=== PATIENT | male | born 1930 | race Caucasian/White ===

== ENCOUNTER 2021-04-14 20:33 | Inpatient (IN) | payer OTHER, MEDICAID, SELFPAY ==
[~2021-04-14] VITALS: Ht 175.3 cm; Wt 55.8 kg
[2021-04-14 20:36] VITALS: BP_SYST 147
--- NOTE | 2021-04-14 20:36 | NUR ---
Patient to ER bed 2 to gown for evaluation. Side rails up.
--- NOTE | 2021-04-14 20:45 | NUR ---
Respiratory therapist at bedside.
--- NOTE | 2021-04-14 20:46 | NUR ---
Dr. Brewster at bedside for evaluation.
[2021-04-14] MEDS ORDERED: METO50TA7 PO (20:52)
[2021-04-14] MEDS ORDERED: MINERAL OIL GT (20:52)
[2021-04-14] MEDS ORDERED: FOLI-43 GT (20:52)
[2021-04-14] MEDS ORDERED: OMEP40CA13 GT (20:52)
[2021-04-14] MEDS ORDERED: METO-290 GT (20:52)
[2021-04-14] MEDS ORDERED: POLY17PO4 GT (20:52)
[2021-04-14] MEDS ORDERED: ASCO500T20 GT (20:52)
[2021-04-14] MEDS ORDERED: SENN8.6T19 GT (20:52)
[2021-04-14] MEDS ORDERED: LACT10SO7 GT (20:52)
[2021-04-14] MEDS ORDERED: CHLO473M5 PO (20:52)
[2021-04-14] MEDS ORDERED: VITA1CAP GT (20:52)
[2021-04-14] MEDS ORDERED: CLON0.1T GT (20:52)
[2021-04-14] MEDS ORDERED: TYLL650 GT (20:52)
[2021-04-14] MEDS ORDERED: DOCU-144 GT (20:52)
--- NOTE | 2021-04-14 20:52 | NUR ---
Medication reconciliation completed with information provided by [facility] and rehab. Any prior medication reconciliation on file was reviewed and corrected.
[2021-04-14] MEDS ORDERED: PANTOPRAZOLE SODIUM 80 MG in NS 100 ML IVP ONE (21:00)
--- NOTE | 2021-04-14 21:00 | NUR ---
Patient AAOx1 BIB BLS from [facility] for abnormal labs. per facility labs done on 6.4. history of ESRD on HD, afib. GERD, anemia, and resp failure. Patient on chronic trach vent settings on SIMV 12/VT 450/PS12/Peep 5/ Fi02 50%. non-verbal. dialysis AV fistula to left arm. pitting edema +3 to upper extremities and +2 on lower extremities. VSS.
--- NOTE | 2021-04-14 21:06 | NUR ---
# 18 gauge angiocath placed to RAC. Use of asceptic technique. Opsite placed over site. Blood return noted. Flushed with 10 cc of normal saline. No evidence of infiltration noted. Patient tolerated well. WEB SITE DEVELOPER AT BEDSIDE FOR BLOOD SPECIMEN COLLECTION.
--- NOTE | 2021-04-14 21:13 | NUR ---
COVID SWAB AND MRSA SWAB COLLECTED AND SENT TO LAB FOR ANALYSIS.
[2021-04-14 21:22] LABS: MEAN CORPUSCULAR HEMOGLOBIN 32 pg (27-31); MEAN CORPUSCULAR HGB CONC 34 % (32-36); MEAN CORPUSCULAR VOLUME 93 fL (79.0-98.0); PLATELET COUNT (AUTO) 374 K/uL (130-430); RED BLOOD CELL COUNT(AUTO) 2.19 MIL/uL (4.2-6.2); RED CELL DISTRIBUTION WIDTH 19.2 % (9.0-15.0); WHITE BLOOD COUNT (AUTO) 8.4 K/uL (4.8-10.8)
[2021-04-14 21:29] LABS: ANION GAP 13 (5-15); CALCIUM 8.6 mg/dL (8.4-11.0); CHLORIDE 98 mmol/L (98-107); GLUCOSE 122 mg/dL (70-99); POTASSIUM 3.6 mmol/L (3.5-5.1); SODIUM SERUM 135 mmol/L (136-145); UREA NITROGEN, BLOOD 70 mg/dL (8-21)
[2021-04-14 21:32] LABS: INR 1.1 (0.80-1.20); PROTHROMBIN TIME 11.5 SECS (9.5-12.5)
[2021-04-14 21:34] LABS: HEMATOCRIT 20.4 % (36-54)
[2021-04-14 21:35] LABS: ALANINE AMINOTRANSFERASE 77 U/L (12-78); ALBUMIN 1.4 g/dL (3.4-4.8); ASPARTATE AMINOTRANSFERASE 61 U/L (10-37); TOTAL BILIRUBIN 0.4 mg/dL (0.0-1.0)
[2021-04-14] MEDS ORDERED: PANTOPRAZOLE SODIUM 40 MG/VIAL (PROTONIX) ONE ×2 (21:38)
--- NOTE | 2021-04-14 22:00 | NUR ---
# 20 gauge angiocath placed to RAC. Use of asceptic technique. Opsite placed over site. Blood return noted. Flushed with 10 cc of normal saline. No evidence of infiltration noted. Patient tolerated well. previous PIV showed swelling when flushing. PIV removed and re-started.
[2021-04-14] MEDS: PANTOPRAZOLE SODIUM 40 MG in NS 50 ML IV SCH (22:37)
--- NOTE | 2021-04-14 23:02 | NUR ---
Patient will be admitted to [facility]. Admitted to ICU unit. Will go to room 7. Belongings list completed. Complete and up to date summary report printed. SBAR report to be given at bedside with opportunity for questions.
[2021-04-14] MEDS ORDERED: LevALBUTEROL HCL 1.25 MG/0.5 ML *CONC.* VIAL.NEB (XOPENEX CONC.) INH PRN (23:15)
[2021-04-14] MEDS ORDERED: cloNIDine HCL 0.1 MG TABLET GT PRN (23:15)
[2021-04-14] MEDS ORDERED: PANTOPRAZOLE SODIUM 40 MG/VIAL (PROTONIX) IVP SCH (23:15)
[2021-04-14] MEDS ORDERED: METOCLOPRAMIDE HCL 10 MG TABLET GT PRN (23:15)
[2021-04-14] MEDS ORDERED: ACETAMINOPHEN 650 MG/20.3 ML UDC GT PRN (23:15)
--- NOTE | 2021-04-14 23:54 | NUR ---
Transfer to ICU via ACLS protocol. Licensed nurse present. IV present no signs or symptoms of infiltration.
[2021-04-15] VITALS (38 sets, daily range): BP systolic 87–152
--- NOTE | 2021-04-15 | NUR ---
ADMISSION Pt received from ER via [facility], accompanied by Respiratory and ER staff. Ambu-bag in use. No belongings with pt. Pt alert non-verbal makes eye contact. Trach to vent. PEG tube clamped. IV fluid infusing right AC, started by ER staff 20ga. AV shunt present left forearm. Strong Bruit & thrill noted. SCD in use.
--- NOTE | 2021-04-15 01:00 | NUR ---
RHONCHI Rhonchi present bilateral upper lobes clears with suctioning.
[2021-04-15] MEDS: LevALBUTEROL HCL 1.25 MG/0.5 ML *CONC.* VIAL.NEB (XOPENEX CONC.) INH SCH ×4 (01:12→20:57)
[2021-04-15] MEDS ORDERED: PANTOPRAZOLE SODIUM 40 MG/VIAL (PROTONIX) ONE ×2 (01:27→04:43)
[2021-04-15] MEDS: D5/0.45 NS 1,000 ML IV SCH ×2 (02:48→12:33)
[2021-04-15] MEDS: PANTOPRAZOLE SODIUM 40 MG in NS 50 ML IV SCH ×6 (02:49→23:21)
--- NOTE | 2021-04-15 03:30 | NUR ---
IV PLACEMENT: # 20 gauge angiocath placed to right upper arm. Use of asceptic technique. Opsite placed over site. Blood return noted. Flushed with 10 cc of normal saline. No evidence of infiltration noted. Patient tolerated well.
--- NOTE | 2021-04-15 06:09 | NUR ---
CONSULTATION PAGED: DR. PATE PRIORITY: ROUTINE REASON FOR CONSULTATION: LOWER GI BLEED WAS CONSULT CALLED:Y PERSON WHO WAS NOTIFIED: SONAL CONSULTING PHYSICIAN: DR. RIO PINEDA IRRIGATIONIST DESIGNER TABLE GAMES FLOOR SUPERVISOR SPECIALTY: GI TABLE GAMES FLOOR SUPERVISOR PHONE NUMBER: [phone] REQUESTING PHYSICIAN: DR. MELGAR
--- NOTE | 2021-04-15 06:12 | NUR ---
CONSULTATION PAGED: DR. NGUYEN PRIORITY: ROUTINE REASON FOR CONSULTATION: RENAL FAILURE WAS CONSULT CALLED:Y PERSON WHO WAS NOTIFIED: SONAL CONSULTING PHYSICIAN: DR. NGUYEN BRANCH COORDINATOR SPECIALTY: NEPHRO BRANCH COORDINATOR PHONE NUMBER: [phone] REQUESTING PHYSICIAN: DR. MELGAR
--- NOTE | 2021-04-15 06:23 | NUR ---
PRBC Unable to get a reliable IV site. Will have MD order a central line. Pt a very difficult stick.
[2021-04-15 06:35] LABS: ANION GAP 12 (5-15); CALCIUM 8.3 mg/dL (8.4-11.0); CHLORIDE 99 mmol/L (98-107); CREATININE 3.13 mg/dL (0.55-1.30); GLUCOSE 102 mg/dL (70-99); POTASSIUM 3.6 mmol/L (3.5-5.1); SODIUM SERUM 134 mmol/L (136-145); UREA NITROGEN, BLOOD 73 mg/dL (8-21)
[2021-04-15 06:53] LABS: BASOPHILS % (AUTO) 0.3 % (0.0-2.0); EOSINOPHILS # (AUTO) 0.1 K/uL (0.0-0.4); LYMPHOCYTES # (AUTO) 1.6 K/uL (1.0-5.5); LYMPHOCYTES % (AUTO) 18.6 % (20.5-51.5); MEAN CORPUSCULAR HEMOGLOBIN 32 pg (27-31); MEAN CORPUSCULAR HGB CONC 34 % (32-36); MEAN CORPUSCULAR VOLUME 92 fL (79.0-98.0); MONOCYTES # (AUTO) 1.2 K/uL (0.0-1.0); MONOCYTES % (AUTO) 13.3 % (1.7-9.3); NEUTROPHILS # (AUTO) 5.9 K/uL (1.8-7.7); NEUTROPHILS % (AUTO) 66.8 % (40.0-70.0); PLATELET COUNT (AUTO) 361 K/uL (130-430); RED BLOOD CELL COUNT(AUTO) 2.09 MIL/uL (4.2-6.2); RED CELL DISTRIBUTION WIDTH 18.4 % (9.0-15.0); WHITE BLOOD COUNT (AUTO) 8.9 K/uL (4.8-10.8)
[2021-04-15 06:59] LABS: TOTAL IRON BIND. CAPACITY 137 ug/dL (250-450)
--- NOTE | 2021-04-15 07:22 | NUR ---
Received patient and report from busperson nurse. Patient in bed with side rails x 3 up. Call light with in reach.
--- NOTE | 2021-04-15 07:45 | NUR ---
MD Castro at bedside assessing patient, gave update as requested.
--- NOTE | 2021-04-15 07:50 | NUR ---
MD Agusto houston for consultation, stated will come to site soon to assess patient.
[2021-04-15 07:51] LABS: HEMATOCRIT 19.2 % (36-54); HEMOGLOBIN 6.6 g/dL (14.0-18.0)
--- NOTE | 2021-04-15 08:30 | NUR ---
Reported to primary patient's hemoglobin 6.6, hematocrit 19.2 from this morning's labs and requested PICC line order due to inability for two units of blood already ordered to be given due to multiple nurses attempt for IV line insertion as reported by night filler. Primary approved, paged splunk developer to receive consent for PICC line order.
[2021-04-15] MEDS: FOLIC ACID 1 MG TABLET GT SCH (09:00)
[2021-04-15] MEDS: ASCORBIC ACID 500 MG TABLET GT SCH (09:00)
[2021-04-15] MEDS: POLYETHYLENE GLYCOL 3350, 17 GM/ POWD.PACK GT SCH ×2 (09:00→20:18)
[2021-04-15] MEDS: LACTULOSE 20 GM/30 ML UDC GT SCH (09:00)
[2021-04-15] MEDS: VITAMIN B COMPLEX 1 CAP/TAB GT SCH (09:00)
[2021-04-15] MEDS: METOPROLOL SUCCINATE 50 MG TAB.SR.24H (TOPROL XL) PO SCH (09:00)
[2021-04-15] MEDS: MINERAL OIL 30 ML UDC GT SCH (09:00)
--- NOTE | 2021-04-15 09:02 | NUR ---
BT INITIATION: Consent signed per family member Clarisa via telephone agreeing to administration of blood. Blood has been type and crossmatched. First unit of two blood units sent from blood bank. Information on unit of blood checked against patient wristband at bedside by two nurses. All information matches. Patient or responsible libertarian informed of potential complications associated with blood transfusion. Informed of possible transfusion reaction symptoms. Aware of need to notify nurse at once of itching, shortness of breath, flushing, feeling of impending doom, or other symptoms not previously present. Vital signs taken within 5 minutes prior to initiation of transfusion. RN will remain with patient for first 15 minutes of transfusion at which time vital signs will be re-assessed.
[2021-04-15] MEDS: CHLORHEXIDINE GLUCONATE 15 ML/DOSE, 480 ML MM SCH ×2 (09:11→20:19)
--- NOTE | 2021-04-15 10:03 | NUR ---
MD Liz at bedside assessing patient.
--- NOTE | 2021-04-15 10:04 | NUR ---
Gave MD Liz patient update as requested at bedside.
--- NOTE | 2021-04-15 10:14 | NUR ---
Reported to MD Pascal patient has stage four sacral wound with large amount of purulent drainage and was reported by general utility worker nurse patient had mild temperature, MD Liz ordered IV Merrem. MD Pascal new order Ayaan for infectious disease consultation. MD Kuo paged.
--- NOTE | 2021-04-15 10:17 | NUR ---
CONSULT ID CONSULTING MD: DR. HARVEY PERSON NOTIFIED: RODRIGUEZ DIALED: [phone] ORDERED BY: DR. MELGAR
[2021-04-15] MEDS ORDERED: MIDAZOLAM HCL 5 MG/5 ML VIAL ONE (10:31)
[2021-04-15] MEDS ORDERED: MEROPENEM IV SCH (11:00)
[2021-04-15] MEDS ORDERED: NS IV SCH (11:00)
[2021-04-15] MEDS ORDERED: ROCURONIUM BROMIDE 10 MG/ML (ZEMURON) IV ONE (11:44)
--- NOTE | 2021-04-15 11:50 | NUR ---
MD Kuo called, gave update as requested.
--- NOTE | 2021-04-15 11:54 | NUR ---
Nutrition Update Humberto scale: 11 noted Pt admitted with lower GI bleed Diet: Clear liquid BMI: 18.8 kg/m2 RD to follow per nutrition care standards. KW, RD
[2021-04-15] MEDS: VANCOMYCIN HCL 750 MG in NS 250 ML IV SCH (12:32)
--- NOTE | 2021-04-15 12:47 | NUR ---
Verified protonix order with MD Castro, ordered to keep protonix drip and discontinue protonix IVP. Also reported patient hemoglobin was 6.6 and hematocrit is 19.2 but with bleeding visualized during patient care, MD requested to repeat CBC after completion of blood transfusions and patient may start GT feeding Nephro 30 cc/hr after KUB verification of gt placement is performed.
[2021-04-15] MEDS ORDERED: GASTROGRAFIN 120 ML ONE (13:06)
--- NOTE | 2021-04-15 14:58 | NUR ---
MD Pascal approved new order for venelex and calclium alginate for sacral wound and heel boots for patient.
[2021-04-15] MEDS: CEFEPIME 1 GM in D5W 50 ML IV SCH (15:00)
[2021-04-15] MEDS: metroNIDAZOLE 250 mg/NS 50 ML IV SCH ×2 (15:01→22:16)
[2021-04-15 15:43] LABS: BASOPHILS % (AUTO) 0.4 % (0.0-2.0); EOSINOPHILS # (AUTO) 0.1 K/uL (0.0-0.4); EOSINOPHILS % (AUTO) 1.7 % (0.0-4.0); HEMATOCRIT 25.7 % (36-54); HEMOGLOBIN 8.8 g/dL (14.0-18.0); LYMPHOCYTES # (AUTO) 1.6 K/uL (1.0-5.5); LYMPHOCYTES % (AUTO) 22.5 % (20.5-51.5); MEAN CORPUSCULAR HEMOGLOBIN 31 pg (27-31); MEAN CORPUSCULAR HGB CONC 34 % (32-36); MEAN CORPUSCULAR VOLUME 91 fL (79.0-98.0); MONOCYTES # (AUTO) 0.8 K/uL (0.0-1.0); MONOCYTES % (AUTO) 11.3 % (1.7-9.3); NEUTROPHILS # (AUTO) 4.6 K/uL (1.8-7.7); NEUTROPHILS % (AUTO) 64.1 % (40.0-70.0); PLATELET COUNT (AUTO) 297 K/uL (130-430); RED BLOOD CELL COUNT(AUTO) 2.84 MIL/uL (4.2-6.2); RED CELL DISTRIBUTION WIDTH 17.9 % (9.0-15.0); WHITE BLOOD COUNT (AUTO) 7.2 K/uL (4.8-10.8)
--- NOTE | 2021-04-15 16:05 | NUR ---
MD Castillo present at bedside assessing patient, update on patient's status per request.
[2021-04-15] MEDS ORDERED: BALSAM PERU/CASTOR OIL 60 GM OINT...G. TP ONE (16:30)
--- NOTE | 2021-04-15 17:36 | NUR ---
WOUND ASSESSMENT: 1. SACRAL- [place] shaped woundbed present with 80% white slough based 20% beefy red with macerated periwound. In middle of woundbed circular hollow shaped 3.2 CM length x 3.0 cm width with depth and undermining present (3.0 cm from 1 O'Clock to 4 O'Clock and at 11 O'Clock, 2.2 cm at 5 and 9 O'Clock, 2 cm at 6 O'clock, 2.6 cm at 7 O'Clock, 2.8 cm at 8 cm O'Clock, 2.4 cm at 10 cm O'Clock, 1.2 cm O'Clock). Foul odor with excessive amount of greenish purulent thick drainage. Entire woundbed 4.9 CM LENGTH X 5.8 CM WIDTH X 2.0 CM depth. present. Updated wound assessment to MD Pascal, approved order for venelex be placed on woundbed and packed with calclium alginate dressing with foam dressing on top after cleaned with normal saline and pat dry with gauze. TREATMENT: Cleaned woundbed with normal saline and pat dry surrounding site with gauze. Packed woundbed with calcium alginate and applied venelex.Covered site with foam dressing. 2. AV SHUNT LEFT ARM- Woundbed 90% [place] 10 % white with intact periwound and multiple areas of dry red linear scabs. No odor or drainage. TREATMENT: CONTINUE TO MONITOR, OPEN TO AIR.
--- NOTE | 2021-04-15 17:42 | NUR ---
Dialysis nurse at bedside starting procedure on patient, consent already obtained from niece Clarisa with second nurse validation received. Answered all of Clarisa's questions and educated benefits of receiving dialysis procedure, Clarisa agreed.
--- NOTE | 2021-04-15 19:21 | NUR ---
Endorsed patient and report to broadcast journalist nurse. Side rails x 3 up. Call light with in reach.
--- NOTE | 2021-04-15 19:30 | NUR ---
Opening Note Received report from AM nurse using SBAR approach.
--- NOTE | 2021-04-15 19:50 | NUR ---
Placed machine on the wound mattress to help facilitate wound healing.
[2021-04-15] MEDS: SENNOSIDES 8.6 MG TABLET GT SCH (20:19)
--- NOTE | 2021-04-15 22:00 | NUR ---
Dr. Herediaium in to see patient. No new orders received.
[2021-04-16] VITALS (28 sets, daily range): BP systolic 95–137
[2021-04-16] MEDS: LevALBUTEROL HCL 1.25 MG/0.5 ML *CONC.* VIAL.NEB (XOPENEX CONC.) INH SCH ×4 (01:16→22:25)
[2021-04-16] MEDS: PANTOPRAZOLE SODIUM 40 MG in NS 50 ML IV SCH ×5 (03:24→23:08)
[2021-04-16 06:08] LABS: BASOPHILS % (AUTO) 0.5 % (0.0-2.0); EOSINOPHILS # (AUTO) 0.1 K/uL (0.0-0.4); HEMATOCRIT 27.4 % (36-54); HEMOGLOBIN 9.2 g/dL (14.0-18.0); LYMPHOCYTES # (AUTO) 1.1 K/uL (1.0-5.5); LYMPHOCYTES % (AUTO) 15.8 % (20.5-51.5); MEAN CORPUSCULAR HEMOGLOBIN 30 pg (27-31); MEAN CORPUSCULAR HGB CONC 34 % (32-36); MEAN CORPUSCULAR VOLUME 90 fL (79.0-98.0); MONOCYTES # (AUTO) 0.9 K/uL (0.0-1.0); MONOCYTES % (AUTO) 13.7 % (1.7-9.3); NEUTROPHILS # (AUTO) 4.6 K/uL (1.8-7.7); PLATELET COUNT (AUTO) 300 K/uL (130-430); RED BLOOD CELL COUNT(AUTO) 3.05 MIL/uL (4.2-6.2); RED CELL DISTRIBUTION WIDTH 18.1 % (9.0-15.0); WHITE BLOOD COUNT (AUTO) 6.8 K/uL (4.8-10.8)
[2021-04-16 07:14] LABS: ALANINE AMINOTRANSFERASE 65 U/L (12-78); ALBUMIN 1.4 g/dL (3.4-4.8); ANION GAP 12 (5-15); ASPARTATE AMINOTRANSFERASE 56 U/L (10-37); CHLORIDE 101 mmol/L (98-107); CREATININE 2.54 mg/dL (0.55-1.30); GLUCOSE 101 mg/dL (70-99); POTASSIUM 3.3 mmol/L (3.5-5.1); SODIUM SERUM 139 mmol/L (136-145); TOTAL BILIRUBIN 0.6 mg/dL (0.0-1.0); UREA NITROGEN, BLOOD 45 mg/dL (8-21)
[2021-04-16] MEDS: metroNIDAZOLE 250 mg/NS 50 ML IV SCH ×3 (07:15→21:01)
--- NOTE | 2021-04-16 07:30 | NUR ---
AM NOTES: ENDORSEMENT FROM NIGHT NURSE JAVIER. ON AIR LOSS MATTRESS BED.PATIENT ON SIMV MECHANICAL VENTILATOR.SEE [facility] FOR SETTINGS.CLOSED EYES. RIGHT FEMORAL LINE ,IV FLUIDS RUNNING AT 60CC/H AND IV PROTONIX AT 10CC/H. LEFT ARM AV SHUNT,COVERED WITH GAUZE AND SECURED WITH PAPER TAPE.BED LOCKED AT LOWEST POSITION.BILATERAL SCD'S LE.SAFETY MEASURES RENDERED.CONDITION GUARDED. Addendum: 04/16/21 at 0908 by Iris Ledbetter RN ADDED NOTES: G TUBE CLAMPED. AWAITS FOR KUB RESULTS PER DORINA ROLDAN.
[2021-04-16] MEDS: D5/0.45 NS 1,000 ML IV SCH ×2 (08:00→23:08)
[2021-04-16] MEDS: CHLORHEXIDINE GLUCONATE 15 ML/DOSE, 480 ML MM SCH ×2 (08:02→21:00)
[2021-04-16 08:05] LABS: FOLATE (FOLIC ACID) >20.0 ng/mL (>3.0)
[2021-04-16] MEDS: POLYETHYLENE GLYCOL 3350, 17 GM/ POWD.PACK GT SCH ×2 (09:00→21:00)
[2021-04-16] MEDS: VITAMIN B COMPLEX 1 CAP/TAB GT SCH (09:00)
[2021-04-16] MEDS: MINERAL OIL 30 ML UDC GT SCH (09:00)
[2021-04-16] MEDS: FOLIC ACID 1 MG TABLET GT SCH (09:00)
[2021-04-16] MEDS: LACTULOSE 20 GM/30 ML UDC GT SCH (09:00)
[2021-04-16] MEDS: ASCORBIC ACID 500 MG TABLET GT SCH (09:00)
[2021-04-16] MEDS: METOPROLOL SUCCINATE 50 MG TAB.SR.24H (TOPROL XL) PO SCH (09:00)
[2021-04-16] MEDS: BALSAM PERU/CASTOR OIL 60 GM OINT...G. TP SCH (11:44)
[2021-04-16] MEDS: CEFEPIME 1 GM in D5W 50 ML IV SCH (12:44)
--- NOTE | 2021-04-16 14:33 | NUR ---
MD Herediaium at bedside to assess patient. Informed UGI came back confirming gt placement is in appropriate location. new order to transfer patient to tele unit once tube feeding is started. Orders placed MST charge notified.
--- NOTE | 2021-04-16 16:00 | NUR ---
Tube Feed: Nephro initially started at 20cc/h then increment of 10cc/h after an hour,with no residuals.Goal of 30cc/h as ordered.
--- NOTE | 2021-04-16 18:00 | NUR ---
Report: Report given to sherwin Lorenz nurse.
--- NOTE | 2021-04-16 18:28 | NUR ---
Transfer Out to [facility]: Rt ambu bag patient going to room 111- A via bed.Attached to heart monitor during transport. Transfer to air loss mattress bed.Hook to mechanical ventilator,with simv 12,see [facility] for vent settings.Tube feed clamped during transport.Right femoral to lock during transfer. Not in any distress. Condition guarded.
--- NOTE | 2021-04-16 18:45 | NUR ---
Received patient from ICU via bed. Patient obtunded and on vent setting TV 450 FIO2 40%, PEEP 5, PP12. Vitals WNL. Dressing to LFA shunt C/D/I. Saline lock right A/C #20 patent. Right femoral Protonix at 10ml/hr, and D5 1/2 at 60ml/hr. G tube placement checked and nepro at 30ml/hr no residual. Bilateral upper extremity edema noted with weeping. Safety precautions in place. Will endorse to next shift.
--- NOTE | 2021-04-16 19:35 | NUR ---
INITIAL NOTE PATIENT IS LAYING IN BED. NO S/S OF RESPIRATORY DISTRESS NOTED. CALL LIGHT IN REACH. PATIENT UNSUCCESSFULLY DEMONSTRATE USAGE OF CALL LIGHT. WILL CONTINUE TO MONITOR. BED IS LOCKED, ALARMED, AND AT THE LOWEST POSITION. FALL, SAFETY, ASPIRATION, AND RESPIRATORY PRECAUTIONS WILL BE IN PLACE THROUGHOUT THE SHIFT. PLAN OF CARE IS DISCUSSED WITH PATIENT.
[2021-04-16] MEDS: SENNOSIDES 8.6 MG TABLET GT SCH (21:00)
[2021-04-17 00:07] VITALS: BP_SYST 119
[2021-04-17] MEDS: LevALBUTEROL HCL 1.25 MG/0.5 ML *CONC.* VIAL.NEB (XOPENEX CONC.) INH SCH ×4 (01:48→20:24)
[2021-04-17] MEDS: PANTOPRAZOLE SODIUM 40 MG in NS 50 ML IV SCH ×5 (04:58→23:59)
[2021-04-17] MEDS: metroNIDAZOLE 250 mg/NS 50 ML IV SCH ×3 (05:28→22:09)
--- NOTE | 2021-04-17 06:25 | NUR ---
CLOSING NOTE PATIENT IS STABLE AND LAYING IN BED. NO S/S OF RESPIRATORY DISTRESS NOTED. CALL LIGHT IN REACH. BED IS LOCKED, AND AT THE LOWEST POSITION. FALL, SAFETY, ASPIRATION, AND RESPIRATORY PRECAUTIONS WILL BE IN PLACE THROUGHOUT THE SHIFT. WILL CONTINUE TO MONITOR UNTIL SBAR REPORT IS ENDORSED TO AM NURSE. Addendum: 04/17/21 at 0625 by Bryon Mcgarry RN BED IS LOCKED, ALARMED, AND AT THE LOWEST POSITION.
[2021-04-17 06:53] LABS: INR 1.2 (0.80-1.20); PROTHROMBIN TIME 11.8 SECS (9.5-12.5)
[2021-04-17 08:00] VITALS: BP_SYST 103
--- NOTE | 2021-04-17 08:00 | NUR ---
OPENING NOTES RESTING IN BED, UNABLE TO ANSWER ORIENTATION QUESTIONS. ON MECHANICAL VENTILATOR ON SIMV MODE VIA TRACH. NO SIGN OF DIFFICULTY OF BREATHING OR PAIN. TUBE FEEDING ON HOLD. ORAL CARE DONE. REPOSITIONED. FALL AND SAFETY CHECKS DONE. ASPIRATION PRECAUTIONS IN PLACE. PATIENT IS UNABLE TO USE CALL LIGHT. WILL CLOSELY MONITOR.
[2021-04-17] MEDS: VITAMIN B COMPLEX 1 CAP/TAB GT SCH (09:00)
[2021-04-17] MEDS: FOLIC ACID 1 MG TABLET GT SCH (09:00)
[2021-04-17] MEDS: LACTULOSE 20 GM/30 ML UDC GT SCH (09:00)
[2021-04-17] MEDS: MINERAL OIL 30 ML UDC GT SCH (09:00)
[2021-04-17] MEDS: METOPROLOL SUCCINATE 50 MG TAB.SR.24H (TOPROL XL) PO SCH (09:00)
[2021-04-17] MEDS: POLYETHYLENE GLYCOL 3350, 17 GM/ POWD.PACK GT SCH ×2 (09:00→22:07)
[2021-04-17] MEDS: ASCORBIC ACID 500 MG TABLET GT SCH (09:00)
[2021-04-17] MEDS: CHLORHEXIDINE GLUCONATE 15 ML/DOSE, 480 ML MM SCH ×2 (09:25→22:10)
[2021-04-17] MEDS: BALSAM PERU/CASTOR OIL 60 GM OINT...G. TP SCH (09:27)
[2021-04-17] MEDS: VANCOMYCIN HCL 750 MG in NS 250 ML IV SCH (11:35)
--- NOTE | 2021-04-17 11:37 | NUR ---
Dietitian Recommendations *Recommend: resume EN and increase EN infusion rate to new goal. Add Torrey BID *Recommend: Nepro at 35ml/hr, FWF per physician via GT Provides: 1672 kcal, 73gm protein and 611ml fluids daily. Meets: 103% of estimated calorie needs and 84% of lower end of estimated protein needs. Please see Nutritional Assessment for details LONGTERM, RD
[2021-04-17 12:00] VITALS: BP_SYST 118
[2021-04-17 13:16] LABS: FERRITIN 2537 ng/mL (30-400)
--- NOTE | 2021-04-17 13:43 | NUR ---
ULISES note: faxed subacute package to [facility]: [facility]. ULISES requested dr. Pascal for the dc back order. Addendum: 04/17/21 at 1355 by Mino Johnson RN Correction : Please disregard the above information. Wrong patient entry.
[2021-04-17] MEDS: CEFEPIME 1 GM in D5W 50 ML IV SCH (13:49)
[2021-04-17] MEDS ORDERED: SIMETHICONE 40 MG/0.6 ML ML ONE (15:07)
[2021-04-17] MEDS ORDERED: MEPERIDINE 100 MG INJ. 100 MG/ML VIAL ONE (15:08)
[2021-04-17] MEDS ORDERED: fentaNYL CITRATE/PF 100 MCG/2 ML AMP ONE (15:08)
[2021-04-17] MEDS ORDERED: MIDAZOLAM HCL 5 MG/5 ML VIAL ONE (15:09)
--- NOTE | 2021-04-17 15:27 | NUR ---
WOUND EVALUATION: Wound Consult received from Dr. Pascal. Thank you, Dr. Pascal, for the consult. Patient received in a [place] Bed with an IsoFlex CALVIN mattress with low air loss therapy initiated, awake, obtunded. Patient is unable to turn in bed independently. Humberto Score is a 12. Past Medical History: CVA, Hypertension, End-Stage Renal Failure, G-tube placement, Tracheostomy, Chronic Respiratory Failure. Patient transferred to the Emergency Room at [facility] with severe anemia and a positive stool occult blood result. Recent Labs: WBC 6.8, RBC 3.05, hemoglobin 9.2, hematocrit 27.4, potassium 3.3, BUN 45, creatinine 2.54, glucose 101, calcium 8.0, AST 56, alkaline phosphatase 136, serum total protein 5.9, albumin 1.4. Microbiology: MRSA screen results negative. Tracheal aspirate sputum culture results in progress. Sacral wound culture results positive for Morganella Morganii. Blood culture results x2 in progress. Intrinsic factors that delay wound healing: End-Stage Renal Failure, Chronic Respiratory Failure. Extrinsic factors that delay wound healing: Immobility. Wound Assessment: 1. SacralCoccygeal area: Stage IV pressure ulcer, present on admission. Wound bed has 90% yellow slough, 10% red tissue. Bone is palpable. Foul odor, moderate brown drainage with pink tint. Irvin-wound intact. 100% undermining present (4.2 cm at 12 o'clock; 4.8 cm at 3 o'clock; 2.0 cm at 6 o'clock; 4.5 cm at 9 o'clock). Measures 6.0 cm x 8.5 cm x 1.5 cm. Recommend: Cleanse wound with normal saline. Apply moisture barrier cream onto irvin-wound. Apply Venelex ointment to wound bed. Pack wound with 1/2 inch iodo[address] packing strip. Place calcium alginate dressing over packing strip. Cover with non-adhesive foam dressing. Cover with OpSite. Perform wound care daily, and as needed for dressing soiling or dislodgement. Also recommend: Reposition patient side to side only every 2 hours with pillow support and off-load pressure areas with pillows for pressure re-distribution. Offload, elevate and float bilateral heels with pillows. Perform skin care and monitor skin integrity Q shift. Use moisture barrier cream on buttocks and other moisture susceptible areas QID and as needed for soiling. Place patient on a low air-loss mattress. Recommend surgical consult.
[2021-04-17 15:36] VITALS: BP_SYST 130
--- NOTE | 2021-04-17 16:20 | NUR ---
EGD EGD being done at bedside by Dr. Duke.
--- NOTE | 2021-04-17 16:33 | NUR ---
rt notes 1633 EGD Procedure done by Dr. Duke. Pt on SIMV 12, 450VT, PS12, PEEP 5, 40% FIO2. Pt tolerated procedure. no desaturation. no incident happened. will continue to monitor pt.
[2021-04-17] MEDS: D5/0.45 NS 1,000 ML IV SCH (18:48)
--- NOTE | 2021-04-17 19:10 | NUR ---
OPENING NOTES PATIENT RESTING, HOB ELEVATED, NO RESPIRATORY DISTRESS NOTED, CONNECTED TO TRACH BY VENT. CALL LIGHT WITHIN REACH, PATIENT UNABLE TO USE CALL LIGHT, WILL CONTINUE TO MONITOR CLOSELY. BED ALARM ON, BED AT LOWEST POSITION, BED LOCKED, SEIZURE PADS ON. GTUBE IN PLACE, 0ML RESIDUAL NOTED. SEIZURE, ASPIRATION, RESPIRATORY, SAFETY, AND FALL PRECAUTIONS IN PLACE. RECEIVED REPORT THAT PATIENT HAD HAD DIALYSIS 2.4 L OUT, WOUND CARE PROVIDED BY AM SHIFT. DISCUSSED PLAN OF CARE WITH PATIENT. WILL CONTINUE TO MONITOR.
[2021-04-17] MEDS: SENNOSIDES 8.6 MG TABLET GT SCH (22:08)
[2021-04-18] VITALS: BP_SYST 108
--- NOTE | 2021-04-18 00:06 | NUR ---
INCONTINENCE CARE PROVIDED, NO SIGNS OF DISTRESS NOTED. WILL CONTINUE TO MONITOR.
[2021-04-18] MEDS: LevALBUTEROL HCL 1.25 MG/0.5 ML *CONC.* VIAL.NEB (XOPENEX CONC.) INH SCH ×3 (01:53→19:16)
[2021-04-18] MEDS: PANTOPRAZOLE SODIUM 40 MG in NS 50 ML IV SCH ×4 (05:54→21:56)
[2021-04-18] MEDS: metroNIDAZOLE 250 mg/NS 50 ML IV SCH (05:54)
--- NOTE | 2021-04-18 06:43 | NUR ---
CLOSING NOTES PATIENT RESTING, HOB ELEVATED, NO RESPIRATORY DISTRESS NOTED, CONNECTED TO TRACH BY VENT. CALL LIGHT WITHIN REACH, PATIENT UNABLE TO USE CALL LIGHT. BED ALARM ON, BED AT LOWEST POSITION, BED LOCKED, SEIZURE PADS ON. GTUBE IN PLACE, 5ML RESIDUAL NOTED. SEIZURE, ASPIRATION, RESPIRATORY, SAFETY, AND FALL PRECAUTIONS IN PLACE THROUGHOUT SHIFT. WILL ENDORSE CARE TO ONCOMING SHIFT.
--- NOTE | 2021-04-18 08:00 | NUR ---
OPENING NOTES RESTING IN BED, UNABLE TO ANSWER ORIENTATION QUESTIONS. ON MECHANICAL VENTILATOR ON SIMV MODE VIA TRACH. NO SIGN OF DIFFICULTY OF BREATHING OR PAIN. TUBE FEEDING AND IV FLUIDS INFUSING WELL. ORAL CARE DONE. REPOSITIONED. FALL AND SAFETY CHECKS DONE. ASPIRATION PRECAUTIONS IN PLACE. PATIENT IS UNABLE TO USE CALL LIGHT. WILL CLOSELY MONITOR.
[2021-04-18 08:14] VITALS: BP_SYST 102
[2021-04-18] MEDS: METOPROLOL SUCCINATE 50 MG TAB.SR.24H (TOPROL XL) PO SCH (09:00)
[2021-04-18] MEDS: MINERAL OIL 30 ML UDC GT SCH (09:00)
[2021-04-18] MEDS: LACTULOSE 20 GM/30 ML UDC GT SCH (09:00)
[2021-04-18] MEDS: POLYETHYLENE GLYCOL 3350, 17 GM/ POWD.PACK GT SCH ×2 (09:00→21:57)
[2021-04-18] MEDS: FOLIC ACID 1 MG TABLET GT SCH (10:00)
[2021-04-18] MEDS: CHLORHEXIDINE GLUCONATE 15 ML/DOSE, 480 ML MM SCH ×2 (10:00→21:57)
[2021-04-18] MEDS: BALSAM PERU/CASTOR OIL 60 GM OINT...G. TP SCH (10:00)
[2021-04-18] MEDS: ASCORBIC ACID 500 MG TABLET GT SCH (10:01)
[2021-04-18] MEDS: VITAMIN B COMPLEX 1 CAP/TAB GT SCH (10:11)
--- NOTE | 2021-04-18 10:30 | NUR ---
WOUND CARE WOUND CARE DONE. PATIENT TOLERATED PROCEDURE WELL. FALL AND SAFETY CHECKS DONE. ASPIRATION PRECAUTIONS IN PLACE. WILL MONITOR.
[2021-04-18 11:38] VITALS: BP_SYST 130
[2021-04-18] MEDS: D5/0.45 NS 1,000 ML IV SCH (11:52)
--- NOTE | 2021-04-18 12:05 | NUR ---
CM note: Faxed [facility] eval referral package to [facility] fax # [phone], tel [phone].
[2021-04-18] MEDS: CEFEPIME 1 GM in D5W 50 ML IV SCH (14:08)
[2021-04-18 15:43] VITALS: BP_SYST 157
--- NOTE | 2021-04-18 17:45 | NUR ---
CENTRAL LINE DRESSING CHANGE DONE. PATIENT TOLERATED PROCEDURE WELL.
[2021-04-18] MEDS: COLISTIMETHATE SODIUM 150 MG VIAL INH SCH (19:00)
[2021-04-18 20:00] VITALS: BP_SYST 142
--- NOTE | 2021-04-18 20:31 | NUR ---
PATIENT IN BED. TURNED REPOSITIONED Q2. GTUBE PATENT AND INTACT. NO RESIDUAL NOTED. EDEMA NOTED. WILL CONTINUE TO MONITOR. DRESSING TO THE COCCYX DRY AND INTACT.
[2021-04-18] MEDS ORDERED: PANTOPRAZOLE SODIUM 40 MG/VIAL (PROTONIX) ONE (20:47)
[2021-04-18] MEDS: SENNOSIDES 8.6 MG TABLET GT SCH (21:57)
[2021-04-19] VITALS (7 sets, daily range): BP systolic 115–160
[2021-04-19] MEDS: LevALBUTEROL HCL 1.25 MG/0.5 ML *CONC.* VIAL.NEB (XOPENEX CONC.) INH SCH ×4 (01:38→19:43)
[2021-04-19] MEDS: PANTOPRAZOLE SODIUM 40 MG in NS 50 ML IV SCH ×4 (02:00→18:08)
[2021-04-19] MEDS ORDERED: PANTOPRAZOLE SODIUM 40 MG/VIAL (PROTONIX) ONE ×2 (02:46→04:49)
[2021-04-19] MEDS: D5/0.45 NS 1,000 ML IV SCH ×2 (03:15→19:55)
[2021-04-19 07:29] LABS: BASOPHILS % (AUTO) 0.3 % (0.0-2.0); EOSINOPHILS # (AUTO) 0.4 K/uL (0.0-0.4); EOSINOPHILS % (AUTO) 4.8 % (0.0-4.0); HEMATOCRIT 27.3 % (36-54); HEMOGLOBIN 9.3 g/dL (14.0-18.0); LYMPHOCYTES % (AUTO) 11.5 % (20.5-51.5); MEAN CORPUSCULAR HEMOGLOBIN 31 pg (27-31); MEAN CORPUSCULAR HGB CONC 34 % (32-36); MEAN CORPUSCULAR VOLUME 92 fL (79.0-98.0); MONOCYTES # (AUTO) 0.7 K/uL (0.0-1.0); MONOCYTES % (AUTO) 8.5 % (1.7-9.3); NEUTROPHILS # (AUTO) 6.4 K/uL (1.8-7.7); NEUTROPHILS % (AUTO) 74.9 % (40.0-70.0); PLATELET COUNT (AUTO) 251 K/uL (130-430); RED BLOOD CELL COUNT(AUTO) 2.97 MIL/uL (4.2-6.2); RED CELL DISTRIBUTION WIDTH 17.9 % (9.0-15.0); WHITE BLOOD COUNT (AUTO) 8.5 K/uL (4.8-10.8)
--- NOTE | 2021-04-19 07:34 | NUR ---
OPENING NOTE Patient resting in the bed. No acute distress. HOB elevated. Trach intact to vent: AC 12, FIO2 40%, VT 450, PEEP 5. On Nepro at 45ml/hr. Skin warm and dry to touch. Central line intact to right femoral, no redness, no swelling, no drainage. Covered with clean and dry dressing. On D5 1/2 NS at 60ml/hr, infusing well. On contact isolation. Safety measure maintained. Bed locked in low position, side rails up, bed alarm on. Call light within reached. Will continue to monitor.
[2021-04-19 07:36] LABS: ALANINE AMINOTRANSFERASE 39 U/L (12-78); ALBUMIN 1.2 g/dL (3.4-4.8); ANION GAP 11 (5-15); ASPARTATE AMINOTRANSFERASE 46 U/L (10-37); CHLORIDE 100 mmol/L (98-107); CREATININE 3.26 mg/dL (0.55-1.30); GLUCOSE 135 mg/dL (70-99); SODIUM SERUM 136 mmol/L (136-145); TOTAL BILIRUBIN 0.4 mg/dL (0.0-1.0); UREA NITROGEN, BLOOD 42 mg/dL (8-21)
[2021-04-19] MEDS: COLISTIMETHATE SODIUM 150 MG VIAL INH SCH ×2 (07:46→19:43)
[2021-04-19 07:49] LABS: POTASSIUM 2.8 mmol/L (3.5-5.1)
--- NOTE | 2021-04-19 07:59 | NUR ---
MD LIGHT CALLED [facility] AT [phone] SPOKE WITH STEVE.
[2021-04-19] MEDS: ASCORBIC ACID 500 MG TABLET GT SCH (08:28)
[2021-04-19] MEDS: VITAMIN B COMPLEX 1 CAP/TAB GT SCH (08:28)
[2021-04-19] MEDS: MINERAL OIL 30 ML UDC GT SCH (08:28)
[2021-04-19] MEDS: LACTULOSE 20 GM/30 ML UDC GT SCH (08:28)
[2021-04-19] MEDS: FOLIC ACID 1 MG TABLET GT SCH (08:28)
[2021-04-19] MEDS: POLYETHYLENE GLYCOL 3350, 17 GM/ POWD.PACK GT SCH (08:28)
[2021-04-19] MEDS: METOPROLOL SUCCINATE 50 MG TAB.SR.24H (TOPROL XL) PO SCH (08:28)
[2021-04-19] MEDS: BALSAM PERU/CASTOR OIL 60 GM OINT...G. TP SCH (08:29)
[2021-04-19] MEDS: CHLORHEXIDINE GLUCONATE 15 ML/DOSE, 480 ML MM SCH (08:29)
--- NOTE | 2021-04-19 08:40 | NUR ---
POTASSIUM 2.8 Chidi Vasquez seem and examined patient at bedside. Reported to Dr. Camacho, patient's K 2.[address] Camacho he will order potassium supplement via GT and adjust the order of potassium to hemodialysis today.
--- NOTE | 2021-04-19 08:46 | NUR ---
DC Planning: Per Nini, the pt is accepted at [facility]. Dr Herediaium aware and he requested the [place] location. The transfer is pending bed assignment and MD final dc order.
[2021-04-19] MEDS ORDERED: POTASSIUM CHLORIDE 20 MEQ/PKT PACKET PO ONE (10:15)
--- NOTE | 2021-04-19 10:56 | NUR ---
SEEN AND EXAMINED BY DR. SRINIVASAN [facility].
[2021-04-19] MEDS: VANCOMYCIN HCL 750 MG in NS 250 ML IV SCH (12:03)
--- NOTE | 2021-04-19 14:00 | NUR ---
HEMODIALYSIS STARTED Patient resting in the bed. No acute distress. Trach intact to vent. Central line intact, IVF and Protonix drip infusing well. Safety measure maintained. Call light within reached. Dialysis nurse stayed at bedside. Continue to monitor.
[2021-04-19] MEDS: CEFEPIME 1 GM in D5W 50 ML IV SCH (14:05)
--- NOTE | 2021-04-19 14:31 | NUR ---
SPOKE TO [facility] BOOKED AN AMBULANCE CCRT TO [facility] ROOM 107 B FIELD APPLICATIONS SPECIALIST TIME 8:00PM 04/19/21, TERI PATIENTS SISTER MADE AWARE AND SHE AGREED WITH THE TRANSFER TODAY,,DIS CODE 63
--- NOTE | 2021-04-19 15:52 | NUR ---
PATIENT TRANSFER ACKNOWLEDGEMENT Patient's niece Clarisa Verma visited patient at bedside. Aware and agree the transfer to [facility] room 107B. Clarisa signed patient transfer acknowledgement form.
--- NOTE | 2021-04-19 17:00 | NUR ---
HEMODIALYSIS COMPLETED. Patient tolerated procedure well, 2.5L out. VS stable. AV shun intact to LFA, pressure dressing intact, no bleeding noted. Safety measure maintained. Call light within reached. Bed locked in low position, padded rails ups up, bed alarm on. Continue to monitor.
--- NOTE | 2021-04-19 18:45 | NUR ---
REPORT GIVEN TO DANETTE DE LA CRUZ AT [facility] [phone].
--- NOTE | 2021-04-19 18:55 | NUR ---
CLOSING NOTE Patient resting in the bed. No acute distress. HOB elevated. Trach intact to vent: SIMV 12, FIO2 30%, VT 450, PEEP 5, pressure support 12. GT intact, patent, no residual. Continent on Nepro at 45ml/hr, tolerated well.. Skin warm and dry to touch. AV shunt intact to LFA with thrill/bruit present. Dressing intact, no bleeding noted. Central line intact to right femoral, no redness, no swelling, no drainage. Covered with clean and dry dressing. On D5 1/2 NS at 60ml/hr, and Protonix drip at 10ml/hr, infusing well. Contact isolation maintained. Safety measure maintained. Bed locked in low position, side rails up, bed alarm on. Call light within reached. Will endorse to night nurse.
--- NOTE | 2021-04-19 19:40 | NUR ---
opening note rcvd pt from hunter rn. anticipating discharge at 1999. discharge paperwork prepared by hunter rn. pt Vital signs stable. pt on mechanical ventilator SIMV 10, FiO2 30%, TV 450 PEEP 5. pt is nonverbal, x0. pt has wound on coccyx (picture and dressing changed by hunter rn). Will change central line dressing prior to discharge. Safety precautions in place. WIll continue to monitor .
--- NOTE | 2021-04-19 20:00 | NUR ---
Central Line Dressing Change Pt tolerated . cleansed with sterile technique.
--- NOTE | 2021-04-19 21:00 | NUR ---
D/C Patient Patient transferred with medication reconciliation form and patient information. Exit Care provided by EMS transferred by ambulance. Patient in stable condition, ID band removed. IV catheter intact R Femoral PICC intact, RN aware at facility.
== END 2021-04-19 21:10 | DRG 377 ==
LOC: SED 20:33 → STU 21:45 → SIC 23:11 → STU 04-16 18:28
PROVIDERS: ADMIT Family Medicine; ATTEND Family Medicine
PROC: 5A1955Z Respiratory Ventilation, Greater than 96 Consecutive Hours (ICD-10-PCS; principal; 2021-04-14)
PROC: 06HY33Z Insertion of Infusion Device into Lower Vein, Percutaneous Approach (ICD-10-PCS; 2021-04-15)
PROC: B54BZZA Ultrasonography of Right Lower Extremity Veins, Guidance (ICD-10-PCS; 2021-04-15)
PROC: 30233N1 Transfusion of Nonautologous Red Blood Cells into Peripheral Vein, Percutaneous Approach (ICD-10-PCS; 2021-04-15)
PROC: 5A1D70Z Performance of Urinary Filtration, Intermittent, Less than 6 Hours Per Day (ICD-10-PCS; 2021-04-15)
PROC: 5A1D70Z Performance of Urinary Filtration, Intermittent, Less than 6 Hours Per Day (ICD-10-PCS; 2021-04-16)
PROC: 0DB78ZX Excision of Stomach, Pylorus, Via Natural or Artificial Opening Endoscopic, Diagnostic (ICD-10-PCS; 2021-04-17)
PROC: 5A1D70Z Performance of Urinary Filtration, Intermittent, Less than 6 Hours Per Day (ICD-10-PCS; 2021-04-19)
DX: K29.71 Gastritis, unspecified, with bleeding (principal); L89.94 Pressure ulcer of unspecified site, stage 4; E43 Unspecified severe protein-calorie malnutrition; G93.41 Metabolic encephalopathy; N18.6 End stage renal disease; J15.6 Pneumonia due to other Gram-negative bacteria; J96.21 Acute and chronic respiratory failure with hypoxia; D84.9 Immunodeficiency, unspecified; N17.9 Acute kidney failure, unspecified; I12.0 Hypertensive chronic kidney disease with stage 5 chronic kidney disease or end stage renal disease; Z68.1 Body mass index [BMI] 19.9 or less, adult; Z99.11 Dependence on respirator [ventilator] status; D63.8 Anemia in other chronic diseases classified elsewhere; R13.10 Dysphagia, unspecified; Z20.822 Contact with and (suspected) exposure to COVID-19; B95.8 Unspecified staphylococcus as the cause of diseases classified elsewhere; E88.89 Other specified metabolic disorders; E11.22 Type 2 diabetes mellitus with diabetic chronic kidney disease; Z99.2 Dependence on renal dialysis; Z86.73 Personal history of transient ischemic attack (TIA), and cerebral infarction without residual deficits
CPT/HCPCS: 36415; 36430; 43235; 71045; 74240-TC; 80048; 80053; 82272; 82607; 82728; 82746; 83051; 83540; 83550; 85014; 85025; 85048; 85049-TC; 85610-TC; 85730-TC; 86886; 86900; 86901; 86920; 87040-TC; 87070-TC; 87075-TC; 87081; 87186-TC; 87205-TC; 90935; 90937; 93005; 94002; 94003; 94640; 94760; 96365; 96375; 99285; C9113; G0378; J0692; J0770; J2175; J2185; J2250; J3010; J3490; J7050; J7060; J7612; P9021; Q9963